=== PATIENT | female | born 1935 | race Hispanic/Latino ===

== ENCOUNTER 2024-08-08 11:11 | Inpatient (IN) | payer MEDICARE, MEDICAID ==
[2024-08-08] MEDS ORDERED: Aspirin Chewable 81 MG TAB ONE (11:50)
[2024-08-08 13:29] LABS: #Basophils 0.03 10x3/uL (0.0-0.2); %Basophils 0.5 % (0.0-1.0); %Eosinophils 1.4 % (0.0-10.0); %Lymphocytes 13.1 % (21.0-51.0); %Neutrophils 75.3 % (42.0-75.0); Mean Corpuscular HGB CONC 31.4 g/dL (32.0-36.0); Mean Corpuscular Hemoglobin 31.6 pg (27.0-31.0); Mean Corpuscular Volume 100.6 fL (78.0-98.0); Mean Platelet Volume 10.3 fL (7.4-10.4); Platelet Count 181 10x3/uL (130-400); RBC Distribution Width 15.6 % (11.5-14.5); Red Blood Cell (RBC) Count 3.48 mill/uL (4.20-5.40)
[2024-08-08 13:48] LABS: ALT (SGPT) 7 U/L (8-55); AST (SGOT) 20 U/L (5-34); Albumin 2.6 g/dL (3.4-4.8); Alkaline Phosphatase 107 U/L (40-110); Anion Gap 16 mmol/L (10-20); BUN (Urea Nitrogen) 16 mg/dL (9.8-20.1); Bilirubin, Total 0.6 mg/dL (0.2-1.2); Calc. Creatinine Clearance 0 mL/min (70-130); Calcium 8.4 mg/dL (7.8-10.44); Carbon Dioxide 30 mmol/L (23-31); Chloride 97 mmol/L (98-107); Estimated GFR 14; Globulin 3.1 g/dL (2.4-3.5); Glucose 145 mg/dL (83-110); Potassium 3.6 mmol/L (3.5-5.1); Protein, Total 5.7 g/dL (5.8-8.1); Sodium 139 mmol/L (136-145)
[2024-08-08 13:50] LABS: Troponin I 0.026 ng/mL (< 0.028)
[2024-08-08] MEDS ORDERED: Senokot S 8.6-50 MG TAB PO PRN (16:49)
[2024-08-08] MEDS ORDERED: Bisacodyl 5 MG TAB PO PRN (16:49)
[2024-08-08] MEDS ORDERED: Acetaminophen 325 MG TAB PO PRN (16:49)
[2024-08-08] MEDS ORDERED: Ondansetron ODT 4 MG TAB PO PRN (16:49)
[2024-08-08] MEDS ORDERED: Heparin 25,000 units/D5W 500 ML IVPB SCH (17:00)
[2024-08-08 19:23] LABS: Troponin I 0.017 ng/mL (< 0.028)
[2024-08-08] MEDS: Heparin 10,000 UNITS/ 10 ML VIAL SLOW IVP SCH (19:56)
[2024-08-08] MEDS: Heparin 25,000 units/D5W 500 ML IV SCH (19:57)
[2024-08-08] MEDS: Midodrine HCl 5 MG TAB PO SCH (20:12)
[2024-08-08] MEDS: Famotidine 20 MG TAB PO SCH (20:13)
[2024-08-08] MEDS ORDERED: Dextrose 5% in Water 1,000 ML IV PRN (21:32)
[2024-08-08] MEDS ORDERED: Glucagon 1 MG/ML KIT IM PRN (21:32)
[2024-08-08] MEDS ORDERED: Dextrose 50% Abboject 50 ML SYRINGE SLOW IVP PRN (21:32)
[2024-08-08 22:38] LABS: Troponin I 0.033 ng/mL (< 0.028)
[2024-08-09 03:04] LABS: PTT Greater than 250.0 sec (22.9-36.1)
[2024-08-09 04:08] LABS: #Basophils 0.04 10x3/uL (0.0-0.2); %Basophils 0.7 % (0.0-1.0); %Eosinophils 3.3 % (0.0-10.0); %Lymphocytes 30.6 % (21.0-51.0); %Monocytes 12.7 % (0.0-10.0); %Neutrophils 52.5 % (42.0-75.0); Hematocrit 31.1 % (36.0-47.0); Mean Corpuscular HGB CONC 32.2 g/dL (32.0-36.0); Mean Corpuscular Hemoglobin 31.1 pg (27.0-31.0); Mean Corpuscular Volume 96.6 fL (78.0-98.0); Platelet Count 166 10x3/uL (130-400); RBC Distribution Width 15.4 % (11.5-14.5); Red Blood Cell (RBC) Count 3.22 mill/uL (4.20-5.40)
[2024-08-09 04:20] LABS: Anion Gap 16 mmol/L (10-20); BUN (Urea Nitrogen) 24 mg/dL (9.8-20.1); Calc. Creatinine Clearance 12 mL/min (70-130); Calcium 8.4 mg/dL (7.8-10.44); Carbon Dioxide 28 mmol/L (23-31); Chloride 99 mmol/L (98-107); Estimated GFR 10; Glucose 100 mg/dL (83-110); Potassium 3.6 mmol/L (3.5-5.1); Sodium 139 mmol/L (136-145)
[2024-08-09 04:37] LABS: PTT Greater than 250.0 sec (22.9-36.1)
[2024-08-09 07:47] LABS: PTT 161.1 sec (22.9-36.1)
[2024-08-09] MEDS: Nystatin Powder 15 GM BOT TOP SCH (08:17)
[2024-08-09 10:24] VITALS: BMI 29.5
[2024-08-09] MEDS: EPOETIN ALFA-EPBX (ESRD) 10,000 UNITS/ML VIAL SC SCH ×2 (15:18→18:50)
[2024-08-09] MEDS: Insulin Regular, Human 100 UNIT/ML 10 ML VIAL SC PRN (21:37)
[2024-08-10 03:23] LABS: #Basophils 0.03 10x3/uL (0.0-0.2); %Basophils 0.5 % (0.0-1.0); %Eosinophils 2.5 % (0.0-10.0); %Lymphocytes 27.9 % (21.0-51.0); %Monocytes 13.5 % (0.0-10.0); Hematocrit 30.4 % (36.0-47.0); Hemoglobin 9.9 g/dL (12.0-16.0); Mean Corpuscular HGB CONC 32.6 g/dL (32.0-36.0); Mean Corpuscular Hemoglobin 31.7 pg (27.0-31.0); Mean Corpuscular Volume 97.4 fL (78.0-98.0); Platelet Count 191 10x3/uL (130-400); RBC Distribution Width 15.3 % (11.5-14.5); Red Blood Cell (RBC) Count 3.12 mill/uL (4.20-5.40)
[2024-08-10 04:11] LABS: ALT (SGPT) 6 U/L (8-55); AST (SGOT) 14 U/L (5-34); Albumin 2.3 g/dL (3.4-4.8); Alkaline Phosphatase 110 U/L (40-110); Anion Gap 16 mmol/L (10-20); BUN (Urea Nitrogen) 37 mg/dL (9.8-20.1); Bilirubin, Total 0.4 mg/dL (0.2-1.2); Calc. Creatinine Clearance 9 mL/min (70-130); Calcium 8.4 mg/dL (7.8-10.44); Carbon Dioxide 25 mmol/L (23-31); Chloride 99 mmol/L (98-107); Estimated GFR 7; Globulin 2.6 g/dL (2.4-3.5); Glucose 95 mg/dL (83-110); Potassium 3.4 mmol/L (3.5-5.1); Protein, Total 4.9 g/dL (5.8-8.1); Sodium 137 mmol/L (136-145)
[2024-08-10 04:34] LABS: HBSAB Concentration Less than 8.00 mIU/mL; HBsAg Index 0.36 S/CO (0-0.99); Hep B Core Total Ab NONREACTIVE (NonReactive); Hep B Core Total Index 0.09 S/CO (0-0.79); Hep B Surf AB NONREACTIVE (NonReactive); Hep B Surf Ag NONREACTIVE S/CO (NonReactive); Hep C IgG Ab NONREACTIVE S/CO (NonReactive); Hep C Index 0.11 S/CO (0-0.79)
[2024-08-10 04:34] LABS: PTT 174.9 sec (22.9-36.1)
[2024-08-10] MEDS: Apixaban 5 MG TAB PO SCH ×2 (14:14→20:57)
[2024-08-10] MEDS: Lidocaine-Prilocaine 2.5% Cream 5 GM TUBE TOP SCH (14:14)
[2024-08-10] MEDS ORDERED: Apixaban 2.5 MG TAB PO SCH ×2 (14:15→21:00)
[2024-08-11] MEDS: traMADol HCl 50 MG TAB PO PRN (09:36)
[2024-08-11] MEDS: Lidocaine 4% Patch TD SCH (09:37)
[2024-08-11 12:17] LABS: #Basophils 0.03 10x3/uL (0.0-0.2); %Basophils 0.6 % (0.0-1.0); %Lymphocytes 23.7 % (21.0-51.0); %Monocytes 11.5 % (0.0-10.0); %Neutrophils 61.8 % (42.0-75.0); Hematocrit 31.9 % (36.0-47.0); Hemoglobin 10.2 g/dL (12.0-16.0); Mean Corpuscular Hemoglobin 31.7 pg (27.0-31.0); Mean Corpuscular Volume 99.1 fL (78.0-98.0); Mean Platelet Volume 10.1 fL (7.4-10.4); Platelet Count 222 10x3/uL (130-400); RBC Distribution Width 15.5 % (11.5-14.5); Red Blood Cell (RBC) Count 3.22 mill/uL (4.20-5.40)
[2024-08-11 12:33] LABS: ALT (SGPT) 5 U/L (8-55); AST (SGOT) 17 U/L (5-34); Albumin 2.4 g/dL (3.4-4.8); Alkaline Phosphatase 125 U/L (40-110); Anion Gap 13 mmol/L (10-20); BUN (Urea Nitrogen) 27 mg/dL (9.8-20.1); Bilirubin, Total 0.4 mg/dL (0.2-1.2); Calc. Creatinine Clearance 10 mL/min (70-130); Calcium 8.4 mg/dL (7.8-10.44); Carbon Dioxide 29 mmol/L (23-31); Chloride 103 mmol/L (98-107); Estimated GFR 8; Globulin 2.8 g/dL (2.4-3.5); Glucose 174 mg/dL (83-110); Potassium 4.2 mmol/L (3.5-5.1); Protein, Total 5.2 g/dL (5.8-8.1); Sodium 141 mmol/L (136-145)
[2024-08-11] MEDS: Insulin Regular, Human 100 UNIT/ML 10 ML VIAL SC PRN (17:14)
[2024-08-11] MEDS: Transdermal Lidocaine Patch Removal TOP SCH (21:02)
[2024-08-12 04:08] LABS: #Basophils 0.04 10x3/uL (0.0-0.2); %Basophils 0.8 % (0.0-1.0); %Lymphocytes 30.6 % (21.0-51.0); %Monocytes 14.2 % (0.0-10.0); %Neutrophils 50.8 % (42.0-75.0); Hematocrit 30.2 % (36.0-47.0); Hemoglobin 9.7 g/dL (12.0-16.0); Mean Corpuscular HGB CONC 32.1 g/dL (32.0-36.0); Mean Corpuscular Hemoglobin 31.6 pg (27.0-31.0); Mean Corpuscular Volume 98.4 fL (78.0-98.0); Mean Platelet Volume 9.8 fL (7.4-10.4); Platelet Count 214 10x3/uL (130-400); RBC Distribution Width 15.2 % (11.5-14.5); Red Blood Cell (RBC) Count 3.07 mill/uL (4.20-5.40)
[2024-08-12 04:28] LABS: Anion Gap 15 mmol/L (10-20); BUN (Urea Nitrogen) 37 mg/dL (9.8-20.1); Calc. Creatinine Clearance 9 mL/min (70-130); Calcium 8.4 mg/dL (7.8-10.44); Carbon Dioxide 27 mmol/L (23-31); Chloride 102 mmol/L (98-107); Estimated GFR 7; Glucose 123 mg/dL (83-110); Potassium 4.3 mmol/L (3.5-5.1); Sodium 140 mmol/L (136-145)
[2024-08-14 08:12] VITALS: BP 149/70; TEMP 98.1
[2024-08-17] MEDS ORDERED: Apixaban 5 MG TAB PO SCH (09:00)
== END 2024-08-14 11:37 | disposition home health service (06) | DRG 299 ==
LOC: ERS 11:11 → ERHOLD 14:55 → PCU 17:47 → OBSVTOIN 08-09 09:49
PROVIDERS: ADMIT Family Medicine; ATTEND Family Medicine
DX: I82.403 Acute embolism and thrombosis of unspecified deep veins of lower extremity, bilateral (principal); I26.99 Other pulmonary embolism without acute cor pulmonale; N18.6 End stage renal disease; E11.22 Type 2 diabetes mellitus with diabetic chronic kidney disease; D63.1 Anemia in chronic kidney disease; Z86.718 Personal history of other venous thrombosis and embolism; Z86.711 Personal history of pulmonary embolism; Z93.3 Colostomy status; Z91.041 Radiographic dye allergy status; Z91.013 Allergy to seafood; Z79.899 Other long term (current) drug therapy
CPT/HCPCS: 36415; 36416; 71045; 71046; 71250; 78451; 80048; 80053; 83880; 84484; 85025; 85730; 86704; 86706; 86803; 87340; 90935; 93005; 93970; 94760; 96374; A9540; G0257; G0378; J1644; J1815; Q5105